=== PATIENT | male | born 1970 | race Caucasian/White ===

== ENCOUNTER 2022-05-02 07:49 | Day surgery (SDC) | payer BC ==
[~2022-05-02] VITALS: Ht 172.7 cm; Wt 84.1 kg
[2022-05-02] MEDS ORDERED: MIDAZolam 1 MG/ML 5ML VIAL ONE (07:56)
[2022-05-02] MEDS ORDERED: fentaNYL/PF 50MCG/1 ML 2ML syringe ONE (07:56)
[2022-05-02 07:58] VITALS: BP 137/97
[2022-05-02] MEDS ORDERED: PRAV10TA39 PO (08:02)
[2022-05-02 09:15] VITALS: BP 124/78
[2022-05-02 09:25] VITALS: BP 122/75
[2022-05-02 09:35] VITALS: BP 127/81
[2022-05-02 09:45] VITALS: BP 123/83
== END 2022-05-02 10:00 | disposition home or self-care (01) ==
LOC: GI LAB 07:49
PROVIDERS: ATTEND Internal Medicine Gastroenterology
DX: Z12.11 Encounter for screening for malignant neoplasm of colon (principal); K63.5 Polyp of colon; K64.1 Second degree hemorrhoids
CPT/HCPCS: 45385; 99152; 99153; J2250; J3010; J7030; Z7512; 45380; A4620; C1889

== ENCOUNTER 2022-07-18 08:01 | Day surgery (SDC) | payer BC ==
[~2022-07-18] VITALS: Ht 172.7 cm; Wt 83.2 kg
[~2022-07-18 08:01] MED LIST: PRAV10TA39 PO
[2022-07-18 08:15] VITALS: BP 139/97
[2022-07-18] MEDS ORDERED: fentaNYL/PF 50MCG/1 ML 2ML syringe ONE (08:20)
[2022-07-18] MEDS ORDERED: MIDAZolam 1 MG/ML 5ML VIAL ONE (08:21)
[2022-07-18] MEDS ORDERED: LIDOcaine Viscous 15ml cup ONE (08:21)
[2022-07-18] MEDS ORDERED: OMEP40CA21 PO (08:30)
[2022-07-18 09:05] VITALS: BP 126/88
[2022-07-18 09:15] VITALS: BP 129/92
[2022-07-18 09:25] VITALS: BP 123/87
[2022-07-18 09:35] VITALS: BP 121/80
== END 2022-07-18 09:45 | disposition home or self-care (01) ==
LOC: GI LAB 08:01
PROVIDERS: ATTEND Internal Medicine Gastroenterology
DX: K21.00 Gastro-esophageal reflux disease with esophagitis, without bleeding (principal); K44.9 Diaphragmatic hernia without obstruction or gangrene; K31.7 Polyp of stomach and duodenum; K31.89 Other diseases of stomach and duodenum
CPT/HCPCS: 43239; 99152; J2250; J3010; J7030; Z7512; A4620